=== PATIENT | male | born 1955 | race Hispanic/Latino ===

== ENCOUNTER 2019-05-09 15:27 | Outpatient (CLI) | payer MEDICARE ==
--- NOTE | 2019-05-09 15:44 | RAD ---
Right knee 4 views HISTORY: Right knee pain. FINDINGS: Mild to moderate joint space narrowing at the medial compartment. Tricompartmental osteophy tosis, also most pronounced at the medial compartment and patellofemoral compartment. No acute fracture or dislocation evident. Small amount of fluid within the suprapatellar bursa. IMPRESSION : Osteoarthritic changes most pronounced at the medial compartment with a small joint effusion.
== END 2019-05-09 15:28 | disposition home or self-care (01) ==
LOC: RAD 15:27 → BICRAD 15:28
PROVIDERS: ATTEND Internal Medicine Rheumatology
DX: M25.561 Pain in right knee (principal); M17.11 Unilateral primary osteoarthritis, right knee; M25.461 Effusion, right knee

== ENCOUNTER 2020-11-10 09:06 | Outpatient (CLI) | payer MEDICARE | END 2020-11-10 09:07 | disposition home or self-care (01) | LOC: BICMAMMO 09:06 → BICRAD 09:07 | PROVIDERS: ATTEND Internal Medicine Rheumatology | DX: M19.011 Primary osteoarthritis, right shoulder (principal); M19.012 Primary osteoarthritis, left shoulder ==

== ENCOUNTER 2022-05-05 08:56 | Emergency (ER) | payer OTHER ==
[2022-05-05] MEDS ORDERED: HYDROcodone/Acetaminophen 5/325 mg Tablet ONE (10:42)
== END 2022-05-05 12:03 | disposition home or self-care (01) ==
LOC: ERS 08:56
DX: S70.01XA Contusion of right hip, initial encounter (principal); M54.50 Low back pain, unspecified; I10 Essential (primary) hypertension; E11.9 Type 2 diabetes mellitus without complications; E78.5 Hyperlipidemia, unspecified; W17.2XXA Fall into hole, initial encounter
CPT/HCPCS: 71250; 74177